=== PATIENT | female | born 1965 | race Caucasian/White ===

== ENCOUNTER 2020-11-02 15:31 | Emergency (ER) | payer BC, OTHER ==
[~2020-11-02 15:31] MED LIST: AMLODIPINE BESYL5 MG PO; ASPIRIN EC81 MG PO; ATORVASTATIN CA20 MG PO; BRILINTA 90 MG90 MG PO; CO Q-1010 MG PO; COZAAR 50MG TAB50 MG PO; COZAAR50 MG PO; FORTAMET500 MG PO; GLUCOPHAGE500 MG PO; JANUVIA100 MG PO; LOPRESSOR50 MG PO; NAPROSYN500 MG PO; NITROGLYCERIN0.4 MG SL; PERCOCET 5/325 T1 EA PO; PROTONIX40 MG PO
[2020-11-02 17:33] LABS: HEMOGLOBIN 12.3 gm/dl (12.3-15.3); RED BLOOD COUNT 4.31 M/UL (4.00-5.10); WHITE BLOOD COUNT 2.4 K/UL (4.5-11.0)
== END 2020-11-02 19:45 | disposition home or self-care (01) ==
LOC: ER1 15:31
PROVIDERS: Preventive Medicine Occupational Medicine
DX: U07.1 COVID-19 (principal); I25.10 Atherosclerotic heart disease of native coronary artery without angina pectoris; I10 Essential (primary) hypertension; E11.9 Type 2 diabetes mellitus without complications
CPT/HCPCS: 36600; 71045; 80053; 82803; 85025; 99285; J7030; M0239